=== PATIENT | female | born 1970 | race Caucasian/White ===

== ENCOUNTER 2020-05-28 15:18 | Observation (INO) | payer BC, OTHER ==
[~2020-05-28] VITALS: Ht 160 cm; Wt 63.5 kg
[2020-05-28 15:57] LABS: HEMOGLOBIN 14.2 gm/dl (12.3-15.3); RED BLOOD COUNT 3.87 M/UL (4.00-5.10); WHITE BLOOD COUNT 11.7 K/UL (4.5-11.0)
[2020-05-28 16:41] LABS: BUN/CREATININE RATIO 5 (0-10)
[2020-05-28] MEDS ORDERED: LISINOPRIL20 MG PO (22:32)
[2020-05-28] MEDS ORDERED: REQUIP0.25 MG PO (22:33)
[2020-05-28] MEDS ORDERED: AMITRIPTYLINE H10 MG PO (22:34)
[2020-05-28] MEDS ORDERED: CELEXA 20MG TAB20 MG PO (22:34)
[2020-05-28] MEDS ORDERED: PROTONIX40 MG PO (22:35)
[2020-05-28] MEDS ORDERED: BUPRENORPHIN-N1 EACH SL (22:36)
[2020-05-29 01:47] LABS: HEMOGLOBIN 12.9 gm/dl (12.3-15.3); RED BLOOD COUNT 3.55 M/UL (4.00-5.10); WHITE BLOOD COUNT 11.7 K/UL (4.5-11.0)
[2020-05-29 02:07] LABS: BUN/CREATININE RATIO 9 (0-10)
[2020-05-30] MEDS ORDERED: LOPRESSOR 25 MG25 MG PO (14:55)
== END 2020-05-30 16:16 | disposition home or self-care (01) ==
LOC: ER1 15:18 → CDU 17:41 → M/S 17:41
PROVIDERS: Physician Assistant; ADMIT Family Medicine
DX: R07.9 Chest pain, unspecified (principal); I10 Essential (primary) hypertension; G25.81 Restless legs syndrome; F41.9 Anxiety disorder, unspecified; G89.4 Chronic pain syndrome; F32.9 Major depressive disorder, single episode, unspecified; F17.210 Nicotine dependence, cigarettes, uncomplicated; E87.6 Hypokalemia; D75.89 Other specified diseases of blood and blood-forming organs; I25.2 Old myocardial infarction; Z20.822 Contact with and (suspected) exposure to COVID-19; Z95.5 Presence of coronary angioplasty implant and graft
CPT/HCPCS: ECHO; 36415; 71045; 78452; 80048; 80053; 80061; 80307; 82550; 82553; 83036; 83874; 84484; 85025; 85379; 93005; 93306; 96365; 96366; 96367; 96375; 96376; 99285; A9502; G0378; J1885; J2060; J2270; J2405; J2785; J3480; Q9967; U0002